=== PATIENT | female | born 2005 | race Caucasian/White ===

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

== ENCOUNTER 2025-06-29 20:58 | Emergency (ER) | payer MEDICAID, SELFPAY ==
[2025-06-29 21:13] VITALS: BP 108/70; PULSE 60; RESP 18; TEMP 36.8; O2SAT 99; BMI 24.7
--- NOTE | 2025-06-29 21:51 | XRR_ITS ---
PROCEDURE INFORMATION: Exam: XR Chest Exam date and time: 06/29/2025 10:03 PM Age: 20 years old Clinical indication: Injury or trauma; Fall; Blunt trauma (contusions or hematomas) TECHNIQUE: Imaging protocol: Radiologic exam of the chest. Views: 1 view. COMPARISON: No relevant prior studies available. FINDINGS: Lungs: Unremarkable. No consolidation. Pleural spaces: Unremarkable. No pleural effusion. No pneumothorax. Heart/Mediastinum: Unremarkable. No cardiomegaly. Bones/joints: Unremarkable. XR/XR chest 1V portable [id number] IMPRESSION: No acute findings.
--- NOTE | 2025-06-29 21:51 | XRR_ITS ---
PROCEDURE INFORMATION: Exam: XR Right Wrist Exam date and time: 06/29/2025 9:58 PM Age: 20 years old Clinical indication: Injury or trauma; Fall; Blunt trauma (contusions or hematomas); Wrist; Right TECHNIQUE: Imaging protocol: Radiologic exam of the right wrist. Views: 3 or more views. COMPARISON: No relevant prior studies available. FINDINGS: Bones/joints: Normal. Soft tissues: Normal. XR/XR wrist RT min 3V* [id number] IMPRESSION: No acute findings.
--- NOTE | 2025-06-29 21:51 | XRR_ITS ---
PROCEDURE INFORMATION: Exam: XR Right Elbow Exam date and time: 06/29/2025 10:00 PM Age: 20 years old Clinical indication: Injury or trauma; Fall; Blunt trauma (contusions or hematomas); Elbow; Right TECHNIQUE: Imaging protocol: Radiologic exam of the right elbow. Views: 3 or more views. COMPARISON: CR ( EX, ) 06/29/2025 9:58 PM FINDINGS: Bones/joints: Normal. Soft tissues: Normal. XR/XR elbow RT min 3V* [id number] IMPRESSION: No acute findings.
--- NOTE | 2025-06-29 21:51 | CTR_ITS ---
PROCEDURE INFORMATION: Exam: CT Head Without Contrast Exam date and time: 06/29/2025 9:56 PM Age: 20 years old Clinical indication: Injury or trauma; Fall; Blunt trauma (contusions or hematomas) TECHNIQUE: Imaging protocol: Computed tomography of the head without contrast. Radiation optimization: All CT scans at this facility use at least one of these dose optimization techniques: automated exposure control; mA and/or kV adjustment per patient size (includes targeted exams where dose is matched to clinical indication); or iterative reconstruction. COMPARISON: No relevant prior studies available. RADIATION DOSE METRICS: Total DLP (mGy-cm): 1082.53 FINDINGS: Brain: Normal. No hemorrhage. Unremarkable white matter. No mass effect. Cerebral ventricles: No ventriculomegaly. Paranasal sinuses: Visualized sinuses are unremarkable. No fluid levels. Mastoid air cells: Visualized mastoid air cells are well aerated. Bones: Unremarkable. No acute fracture. Soft tissues: Unremarkable. CT/CT head wo con* [id number] IMPRESSION: No acute intracranial abnormality.
--- NOTE | 2025-06-29 21:52 | ED_ITS ---
HPI - Fall General: Chief Complaint: Fall Stated Complaint: Fell down stairs, all of RT hurting Time Seen by Provider: 06/29/25 21:43 History of Present Illness: Selected Entries 06/29/25 21:13 ED Triage Comment Patient presents v ia POV for c/o fal ling down approxim ately 15 steps aft er tripping over a cat. She states t hat she hit the ba ck of her head but denies LOC. No la ceration or bleedi ng present. Event occurred approxima tely 1 hour ago. A lso endorses heada charli and rates it ; states that h er whole right cecilia e including ribs, wrist, back all hu rt. Patient is a pleasant 20-year-old female that presents to the emergency room with partner after falling down approximately 15 stairs. She slid down the stairs after she tripped over her cat and a backwards formation. She has pain in her right elbow, right side of her lateral chest/ribs, right scapula, and the back of her head. No gait instability. This occurred just prior to arrival. Associated symptoms-after fall: Reports headache(s); Denies abdominal pain, chest pain or neck pain Related Data Previous Rx's ?Medication ?Instructions ?Recorded diclofenac sodium 75 mg 75 mg PO BID PRN pain #30 ta bs 06/29/25 tablet,delayed release methocarbamol 750 mg tablet 750 mg PO Q8H PRN muscle s pasm #30 06/29/25 tabs Allergies Allergy/AdvReac Type Severity Reaction Status Date / Time No Known Allergies Allergy Verified 11/09/24 19:04 Review of Systems Const: Denies: fever(s), chills, body aches or change in appetite ENMT: Denies: throat pain or dental pain Card: Denies: chest pain or palpitations Resp: Denies: dyspnea or productive cough GI: Denies: abdominal pain, nausea, vomiting or diarrhea Musc: Denies: neck pain or back pain Skin/Breast: Denies: rash Neuro: Reports: headache(s); Denies: numbness in extremities Psych: Denies: anxiety or depression Physical Exam Const: COMMON NORMALS: no acute distress, patient oriented x3 and healthy appearing HENMT: COMMON NORMALS: normocephalic and atraumatic HEAD & SCALP: normocephalic and atraumatic Eye: COMMON NORMALS: conjunctivae normal CONJUNCTIVA: Yes conjunctivae normal Neck/C-Spine: COMMON NORMALS: full ROM and supple Chest: COMMONS NORMALS: normal inspection of the chest Resp: COMMON NORMALS: normal respiratory effort Cardio: COMMON NORMALS: regular rate RATE: regular rate GI: COMMON NORMALS: Normal to inspection, nondistended, normoactive bowel sounds present, Soft to palpation, non-tender and No hepatosplenomegaly present PALPATION: Yes Soft to palpation and Yes No hepatosplenomegaly present : COMMON NORMALS: Yes no CVA tenderness BLADDER/KIDNEY EXAM: Yes no CVA tenderness Back/Pelvis: COMMON NORMALS: no CVA tenderness Extremity: COMMON NORMALS: normal to inspection and full ROM Neuro: COMMON NORMALS: patient oriented x3, moves all extremities and no focal motor deficits Psych: COMMON NORMALS: mental status grossly normal, Normal thought process present and cooperative THOUGHT PROCESS: Normal thought process present Course Vital Signs: Vital signs: Vital Signs Temperature 98.3 F 06/29/25 21:13 Pulse Rate 60 06/29/25 21:13 Respiratory Rate 18 06/29/25 21:13 Blood Pressure 108/70 06/29/25 21:13 Pulse Oximetry 99 06/29/25 21:13 Oxygen Delivery Me thod Room Air 06/29/25 21:13 MDM - Fall Medical Decision Making Patient is a quite pleasant 20-year-old female with significant fall down 15 s tairs. We have discussed concussion syndrome, concerns of worsening symptoms, and when to come to the ED. Patient states understanding. With her CT negative, as well as her x-rays, we will give her Norflex, and Toradol for pain and inflammation. Patient states understanding. All of her questions answered to her satisfaction Differential Diagnosis Likely syncope, dislocation of shoulder region, fracture of wrist, compression fracture, concussion with loss of consciousness and concussion without loss of consciousness Medical Records I reviewed the patient's medical records. Lab Data I reviewed the patient's lab results. Radiology Impressions Chest X-Ray 06/29/25 21:51 IMPRESSION: No acute findings. Elbow X-Ray 06/29/25 21:51 IMPRESSION: No acute findings. Head CT 06/29/25 21:51 IMPRESSION: No acute intracranial abnormality. Wrist X-Ray 06/29/25 21:51 IMPRESSION: No acute findings. XR interpretation done by ED provider, pending radiology final review ED provider radiology interpretation(s): No acute findings on my view Discharge Plan Discharge Patient Disposition: Home Clinical Impression: Concussion without loss of consciousness Qualifiers: Encounter type: initial encounter Qualified Code(s): S06.0X0A - Concussion without loss of consciousness, initial encounter Contusion Qualifiers: Encounter type: initial encounter Contusion area: head Contusion of head detail: scalp Qualified Code(s): S00.03XA - Contusion of scalp, initial encounter Condition: Stable Prescriptions: New methocarbamol 750 mg tablet 750 mg PO Q8H PRN (Reason: muscle spasm) Qty: 30 0RF diclofenac sodium 75 mg tablet,delayed release (DR/EC) 75 mg PO BID PRN (Reason: pain) Qty: 30 0RF Discharge Orders: Discharge ED (Routine); Ordered 06/29/25 Ordered By: Lou Rojas Discharge Diet: Usual diet Discharge Activity: Resume usual activity Patient Instructions: Contusion, Concussion (ED), Patient Portal & Shreya Instructions Activity Restrictions/Additional Instructions: - Medication at pharmacy: Diclofenac, methocarbamol. Diclofenac is an anti- inflammatory more powerful than ibuprofen. Hold off on ibuprofen and avoiding additional issues with your stomach. You may add Tylenol to your diclofenac for additional relief. Methocarbamol is a powerful muscle relaxer. Avoid while driving. You can cut in half to avoid extra sedation issues. -Follow-up with your primary care physician. -You may return to ED if you have any change in your current issues - The rest your findings were all negative. Thank you for choosing [facility] for your healthcare needs today. You have been screened and evaluated and felt safe for discharge. Health conditions do change or evolve sometimes and as such it is important that you follow up with your Primary Doctor to be re checked, 3-5 days is a general good time frame for follow up. You are always welcome to return to the ED for re assessment if your symptoms are worsening or you have new concerns Print Language: [place] Coding Level of Care Code ED Topographic Computator for Harini Hernandez
[2025-06-29] MEDS: orphenadrine 30 mg/mL Inj 2 mL 60 MG IM (23:35)
== END 2025-06-29 23:55 | disposition home or self-care (01) ==
PROVIDERS: Emergency Provider Physician Assistant
DX: S06.0X0A Concussion without loss of consciousness, initial encounter (principal); S00.03XA Contusion of scalp, initial encounter; W01.0XXA Fall on same level from slipping, tripping and stumbling without subsequent striking against object, initial encounter
CPT/HCPCS: 70450; 71045; 73080; 73110; 96372; 99284; J1885; J2360